=== PATIENT | female | born 1985 | race Caucasian/White ===

== ENCOUNTER 2022-10-26 16:24 | Emergency (ER) | payer MEDICAID, SELFPAY ==
[~2022-10-26 16:24] MED LIST: Iopamidol 370 76% 100 ML VIAL ONE
[2022-10-26] MEDS ORDERED: Sodium Chloride 0.9% 1,000 ML ONE (16:43)
[2022-10-26 16:56] LABS: #Basophils 0.1 thou/uL (0.0-0.2); #Eosinphils 0.1 thou/uL (0.0-0.7); #Lymphocytes 2.3 thou/uL (1.20-3.40); #Monocytes 0.6 thou/uL (0.11-0.59); #Neutrophils 6.1 thou/uL (1.40-6.50); %Basophils 1.2 % (0.0-1.0); %Eosinophils 1.1 % (0.0-10.0); %Lymphocytes 25.1 % (21.0-51.0); %Monocytes 6.1 % (0.0-10.0); %Neutrophils 66.5 % (42.0-75.0); Mean Corpuscular HGB CONC 32.3 g/dL (32.0-36.0); Mean Corpuscular Hemoglobin 30.2 pg (27.0-31.0); Mean Corpuscular Volume 93.4 fl (78.0-98.0); Mean Platelet Volume 6.6 fL (7.4-10.4); Platelet Count 423 10x3/uL (130-400); RBC Distribution Width 12.4 % (11.5-14.5); Red Blood Cell (RBC) Count 5.31 mill/uL (4.20-5.40); White Blood Cell (WBC) Count 9.2 10x3/uL (4.8-10.8)
[2022-10-26] MEDS ORDERED: Ondansetron PF 4 MG/2 ML Vial ONE (16:59)
[2022-10-26] MEDS ORDERED: Ketorolac Tromethamine 30 MG/ML VIAL ONE (16:59)
[2022-10-26 17:00] LABS: BHCG - Serum Negative (NEGATIVE); Pregs Control Bar Appear? YES (CONTROL BAR)
[2022-10-26 17:05] LABS: Bilirubin Negative (Negative); Blood, Urine Negative (Negative); Clarity Clear (Clear); Glucose, Urine (Dipstick) Negative (Negative); Ketone, Urine 15 mg/dL (Negative); Leukocyte Negative (Negative); Nitrite Negative (Negative); Protein, Urine (Dipstick) Negative (Neg-Trace); Urobilinogen 0.2 mg/dL (Less than 2); pH, Urine 5.5 (5.0-9.0)
[2022-10-26 17:14] LABS: ALT (SGPT) 15 U/L (8-55); AST (SGOT) 17 U/L (5-34); Albumin 4.9 g/dL (3.5-5.0); Alkaline Phosphatase 65 U/L (40-110); Anion Gap 15 mmol/L (10-20); BUN (Urea Nitrogen) 17 mg/dL (7.0-18.7); Bilirubin, Total 0.7 mg/dL (0.2-1.2); Calc. Creatinine Clearance 0 mL/min (70-130); Carbon Dioxide 23 mmol/L (22-29); Chloride 102 mmol/L (98-107); Estimated GFR 72; Globulin 3.4 g/dL (2.4-3.5); Glucose 91 mg/dL (70-105); Lipase 22 U/L (8-78); Potassium 4.1 mmol/L (3.5-5.1); Protein, Total 8.3 g/dL (6.0-8.3); Sodium 136 mmol/L (136-145)
[2022-10-26 17:15] LABS: CK (CPK) 59 U/L (29-168); CRP (Inflammatory) Less than 0.50 mg/dL (= or < 0.5)
[2022-10-26 17:20] LABS: Cocaine Metabolite Screen Not Detected (NotDetected); Methamphetamine Not Detected (NotDetected); Opiate Screen Not Detected (NotDetected); Phencyclidine (PCP) Not Detected (NotDetected); THC/Cannabinoid Screen Not Detected (NotDetected)
[2022-10-26 17:21] LABS: Amphetamine Detected (NotDetected); Barbiturates Screen Not Detected (NotDetected); Benzodiazepine Screen Not Detected (NotDetected); Medtox Control Line Valid? VALID (VALID); Methadone Not Detected (NotDetected); Oxycodone Screen Not Detected (NotDetected); Tricyclic Screen Not Detected (NotDetected)
[2022-10-27] MEDS ORDERED: Dextrose 50% Abboject 50 ML SYRINGE ONE (09:46)
== END 2022-10-26 19:24 | disposition home or self-care (01) ==
LOC: NAV ERS 16:24
DX: R10.11 Right upper quadrant pain (principal); F17.290 Nicotine dependence, other tobacco product, uncomplicated
CPT/HCPCS: 36415; 74177; 80053; 80306; 81003; 82274; 82550; 83605; 83690; 84443; 84484; 84703; 85025; 86140; 87040; 93005; 96374; 96375; J1885; J2405; J7050; Q9967

== ENCOUNTER 2022-11-19 19:05 | Emergency (ER) | payer MEDICAID ==
[2022-11-19] MEDS ORDERED: HYDROcodone/Acetaminophen 5/325 mg Tablet ONE (20:09)
[2022-11-19] MEDS ORDERED: Lidocaine 1% (PF) 30 ML VIAL ONE (20:12)
[2022-11-19 20:41] LABS: Anion Gap 11 mmol/L (10-20); BUN (Urea Nitrogen) 10 mg/dL (7.0-18.7); CK (CPK) 54 U/L (29-168); Calc. Creatinine Clearance 0 mL/min (70-130); Calcium 8.8 mg/dL (7.8-10.44); Carbon Dioxide 28 mmol/L (22-29); Chloride 105 mmol/L (98-107); Estimated GFR 94; Glucose 99 mg/dL (70-105); Potassium 4.1 mmol/L (3.5-5.1); Sodium 140 mmol/L (136-145)
[2022-11-19] MEDS ORDERED: Boostrix 0.5 ML (Tdap) VIAL (>/=7 yrs of age) ONE (21:56)
[2022-11-19] MEDS ORDERED: Bacitracin 1 PK ONE (22:02)
== END 2022-11-19 22:36 | disposition home or self-care (01) ==
LOC: NAV ERS 19:05
DX: T75.4XXA Electrocution, initial encounter (principal); S60.414A Abrasion of right ring finger, initial encounter; S60.416A Abrasion of right little finger, initial encounter; F17.290 Nicotine dependence, other tobacco product, uncomplicated; Z23 Encounter for immunization; W86.1XXA Exposure to industrial wiring, appliances and electrical machinery, initial encounter; Y93.E9 Activity, other interior property and clothing maintenance
CPT/HCPCS: 36415; 80048; 82550; 90471; 90715; 93005; J2001